=== PATIENT | male | born 1955 | race Caucasian/White ===

== ENCOUNTER 2019-12-10 06:23 | Day surgery (SDC) | payer BC, SELFPAY ==
[2019-12-04 12:23] VITALS: BMI 34.4
--- NOTE | 2019-12-07 09:28 | P.CONAN_ITS ---
Documented by User: Oriana Burger 12/07/19 09:28 HPI - Anesthesia Eval Consult details Narrative: 64yo M for colonoscopy [facility] Past Medical History Medical History (Updated 12/10/19 @ 07:37 by Enid Hernandez) Increased BMI No significant past medical history Snoring Surgical History Surgical History Hx of colonoscopy Social History Social History Are you a primary manager medicare marketing to a significant other at home: No Do you presently have visiting nurse or other home services: No Smoking Status: Never smoker Use of substances other than those prescribed or required for medical reasons: No Have you been hit, kicked, punched, or otherwise hurt by someone within the past year? If so, by whom?: No Advance Directives: No Advance Directives Information Provided: No Advance Directives on File: No Recently lost weight without trying: No Meds Allergies Allergy/AdvReac Type Severity Reaction Status Date / Time No Known Allergies Allergy Verified 12/04/19 12:18 Home Medications Medication Instructions Recorded Confirmed Type No Known Home Meds 12/04/19 12/04/19 History Exam Exam Date and Time: December 07, [id number] Height,Weight and Vital Signs: Height 5 ft 7 in Weight 99.79 kg Assessment and Plan Assessment Anesthesia Assessment: Chart Reviewed Documented by User: Enid Hernandez 12/10/19 07:38 [facility] Past Medical History Medical History (Updated 12/10/19 @ 07:37 by Enid Hernandez) Increased BMI No significant past medical history Snoring Family History Family history of problems with anesthesia: No Surgical History Surgical History Hx of colonoscopy History of Problems with Anesthesia: No Social History Social History Are you a primary manager medicare marketing to a significant other at home: No Do you presently have visiting nurse or other home services: No Smoking Status: Never smoker Use of substances other than those prescribed or required for medical reasons: No Have you been hit, kicked, punched, or otherwise hurt by someone within the past year? If so, by whom?: No Advance Directives: No Advance Directives Information Provided: No Advance Directives on File: No Recently lost weight without trying: No Meds Allergies Allergy/AdvReac Type Severity Reaction Status Date / Time No Known Allergies Allergy Verified 12/04/19 12:18 Home Medications Medication Instructions Recorded Confirmed Type No Known Home Meds 12/04/19 12/04/19 History Exam Height,Weight and Vital Signs: Vital Signs Temp Pulse Resp BP Pulse Ox 12/10/19 06:38 97.1 F 76 18 139/83 97 Airway Mallampati Class: II TM Dist: >3cm Neck ROM: Full Heart: RRR Lungs: CTAB Assessment and Plan Assessment Anesthesia Assessment: Anesthesia Plan Discussed and Chart Reviewed Final Anesthetic Review NPO: Yes ASA Class: II Final Preanesthetic Review: No Changes in Pt Med Stat, Meds/Allgs Chart Reviewed, Consent Obtained/Reviewed and Anes Risks/Benef Reviewed Patient Risk: Low Procedure Risk: Low Anesthetic Plan Anesthetic Plan: MAC: Disposition: Standard PACU
[2019-12-10 06:38] VITALS: BP 139/83; PULSE 76; RESP 18; TEMP 36.2; O2SAT 97
[2019-12-10] MEDS: Lactated Ringers 1,000 ML 100 ML IVCONT (06:54)
[2019-12-10 08:14] VITALS: BP 111/54; PULSE 79; RESP 16; TEMP 36.8; O2SAT 96
--- NOTE | 2019-12-10 08:20 | PM.OP ---
Brief Operative Note Date of procedure: 12/10/19 Pre-op diagnosis: Screening Post-op diagnosis: other (Colon polyps, Diverticulosis) Procedure: Colonoscopy to cecum and TI with biopsies and removal of polyps Surgeon: Chester Gold Anesthesia: MAC Estimated blood loss (mL): 3.0 Pathology: other (A. Cecal polyp B. Polyp at 40cm) Condition: stable Disposition: PACU
[2019-12-10 08:29] VITALS: BP 125/80; PULSE 69; RESP 18; TEMP 37.1; O2SAT 97
--- NOTE | 2019-12-10 09:22 | OP_ITS ---
SURGEON: Chester Gold MD INDICATIONS: The patient presents for evaluation of colorectal cancer screening. Full consent has been obtained from him for this, including risks of bleeding and perforation. PREOPERATIVE DIAGNOSIS: Colorectal cancer screening. POSTOPERATIVE DIAGNOSIS: PROCEDURE PERFORMED: Colonoscopy to the cecum and terminal ileum with biopsy and removal of polyps. ESTIMATED BLOOD LOSS: COMPLICATIONS: ANESTHESIA: Monitored anesthesia care. ASSISTANTS: SPECIMENS: POSTOPERATIVE DIAGNOSES: Colorectal cancer screening, colon polyps, diverticulosis. DESCRIPTION OF PROCEDURE: The patient was placed in the left lateral decubitus position. The digital rectal exam revealed no abnormalities. The Olympus video pediatric colonoscope was entered into the rectum and advanced easily to the cecum. Once in the cecum, I did identify cecal pouch with appendiceal orifice and a normal-appearing ileocecal valve. The terminal ileum was cannulated and appeared normal. The scope was withdrawn back in the colon. The entire cecum was well visualized and appeared normal other than a 3 or 4 mm flat polyp, which was biopsied and completely removed with cold biopsy forceps. The scope was slowly withdrawn assessing all mucosal surfaces carefully. Preparation was excellent. At 40 cm, right on the edge of a diverticulum, was what appeared to be a 3 or 4 mm inflammatory polyp, which was biopsied twice and at least partially removed. I did not visualize any other polyps, colitis, nor angiodysplasia. There was a mild amount of diverticulosis noted in the sigmoid colon. In the rectum, scope was retroflexed visualizing normal rectal mucosa. The distal rectum appeared normal. The scope was straightened out and withdrawn from the patient. He tolerated the procedure well and was returned to recovery area in stable condition. IMPRESSION: 1. Colon polyps, status post biopsy and removal. 2. Probable inflammatory polyp at 40 cm in the area of a diverticulum. 3. Diverticulosis. PLAN: The results of the biopsies will be checked. If the cecal polyp is a tubular adenoma, I would recommend a followup colonoscopy within 5 years. If the polyp at 40 cm is adenomatous, I would recommend a repeat colonoscopy in 3 years. However, if it is only inflammatory, then it would not need any particular followup. MD VALENTINA Khan/BLANCA / [id number] TREVOR
== END 2019-12-10 11:00 | disposition home or self-care (01) ==
PROVIDERS: PCP Internal Medicine; Visit Provider Internal Medicine
PROC: 0DJD8ZZ Inspection of Lower Intestinal Tract, Via Natural or Artificial Opening Endoscopic (ICD-10-PCS; CPT 45378; principal; 2019-12-10 07:30)
DX: Z12.11 Encounter for screening for malignant neoplasm of colon (principal); D12.0 Benign neoplasm of cecum; K51.40 Inflammatory polyps of colon without complications; K57.30 Diverticulosis of large intestine without perforation or abscess without bleeding
CPT/HCPCS: 45380; 88305

== ENCOUNTER 2019-12-12 10:08 | Outpatient (REF) | payer BC, SELFPAY ==
[2019-12-12 12:01] LABS: Prostate Specific Antigen 4.34 ng/mL (<0.05-4.0)
== END 2019-12-12 10:09 | disposition home or self-care (01) ==
LOC: HO.HMGCLDS 10:08
PROVIDERS: PCP Internal Medicine; Visit Provider Urology
DX: R97.20 Elevated prostate specific antigen [PSA] (principal)
CPT/HCPCS: 84153

== ENCOUNTER 2020-06-19 11:41 | Outpatient (REF) | payer BC, SELFPAY ==
[2020-06-19 14:49] LABS: Prostate Specific Antigen 5.06 ng/mL (<0.05-4.0)
== END 2020-06-19 11:42 | disposition home or self-care (01) ==
LOC: HO.HMGCLDS 11:41
PROVIDERS: PCP Internal Medicine; Visit Provider Urology
DX: Z12.5 Encounter for screening for malignant neoplasm of prostate (principal); R97.20 Elevated prostate specific antigen [PSA]
CPT/HCPCS: 36415; 84153

== ENCOUNTER 2020-06-26 12:36 | Outpatient (REF) | payer BC, SELFPAY ==
[2020-06-26 13:55] LABS: Hematocrit 43.1 % (42-52); Mean Corpuscular HGB Conc 34.8 g/dl (31.0-36.0); Mean Corpuscular Hemoglobin 32.1 pg (27.0-33.0); Mean Corpuscular Volume 92.3 fL (80-98); Mean Platelet Volume 10.4 fL (9.4-12.4); Platelet Count 343 X10*3/uL (160-400); Red Blood Count 4.67 X10*6/uL (4.60-5.80); Red Cell Distribution Width 12.8 % (11.0-16.0); White Blood Count 6.7 X10*3/uL (4.8-10.8)
[2020-06-26 14:25] LABS: Alanine Aminotransferase 33 U/L (0-40); Albumin Level 4.3 g/dL (3.5-5.0); Alkaline Phosphatase 103 U/L (39-117); Anion Gap 12 (12-20); Aspartate Amino Transferase 27 U/L (5-37); Bilirubin Total 0.6 mg/dL (0.0-1.0); Blood Urea Nitrogen 16 mg/dL (9-16); Calcium 9.8 mg/dL (8.4-10.2); Carbon Dioxide 25 mmol/L (22-29); Chloride 105 mmol/L (96-108); Cholesterol 197 mg/dL; Estimated Glomerular Filt Rate > 60; Glucose Fasting 108 mg/dL (60-99); HDL Cholesterol 39 mg/dL; LDL Cholesterol Calculated 96 mg/dl; Potassium 4.3 mmol/L (3.3-5.1); Sodium 138 mmol/L (135-145); Total Protein 7.3 g/dL (6.5-8.0); Triglycerides 311 mg/dL
[2020-06-26 14:46] LABS: Thyroid Stimulating Hormone 1.29 uIU/mL (0.32-4.0)
== END 2020-06-26 12:37 | disposition home or self-care (01) ==
LOC: HO.HMGCLDS 12:36
PROVIDERS: PCP Internal Medicine; Visit Provider Internal Medicine
DX: R73.01 Impaired fasting glucose (principal); E78.1 Pure hyperglyceridemia
CPT/HCPCS: 36415; 80053; 80061; 84443; 85027

== ENCOUNTER 2020-07-23 14:23 | Outpatient (REF) | payer BC, SELFPAY ==
--- NOTE | ~2020-07-23 | XR_ITS ---
EXAMINATION: XR AP PELVIS AND LEFT HIP CLINICAL INFORMATION: Pain in left hip. COMPARISON: None. TECHNIQUE: AP pelvis one view. Left hip 2 views. FINDINGS: AP Pelvis: There is mild loss of left hip joint space without bony erosive changes. The right hip joint space is normal. The SI joints are normal. No lytic or sclerotic process seen. The soft tissues are normal. Left Hip: There is mild loss of left hip joint space with periarticular spurring. No visible acute fracture, dislocation or lytic process seen. The soft tissues are normal. Incidental finding of dystrophic calcification along the left proximal medial thigh is noted. XR/XR hip LT min 2V IMPRESSION: Mild degenerative changes left hip joint. No visible acute fracture, dislocation or subluxation seen. The soft tissues are normal.
--- NOTE | ~2020-07-23 | XR_ITS ---
EXAMINATION: XR AP PELVIS AND LEFT HIP CLINICAL INFORMATION: Pain in left hip. COMPARISON: None. TECHNIQUE: AP pelvis one view. Left hip 2 views. FINDINGS: AP Pelvis: There is mild loss of left hip joint space without bony erosive changes. The right hip joint space is normal. The SI joints are normal. No lytic or sclerotic process seen. The soft tissues are normal. Left Hip: There is mild loss of left hip joint space with periarticular spurring. No visible acute fracture, dislocation or lytic process seen. The soft tissues are normal. Incidental finding of dystrophic calcification along the left proximal medial thigh is noted. XR/XR pelvis 1-2V IMPRESSION: Mild degenerative changes left hip joint. No visible acute fracture, dislocation or subluxation seen. The soft tissues are normal.
== END 2020-07-23 14:24 | disposition home or self-care (01) ==
LOC: HO.XRAY 14:23
PROVIDERS: PCP Internal Medicine; Visit Provider Physician Assistant
DX: M25.552 Pain in left hip (principal); M16.12 Unilateral primary osteoarthritis, left hip
CPT/HCPCS: 72170; 73502

== ENCOUNTER 2020-07-28 12:53 | Outpatient (REF) | payer BC, SELFPAY ==
--- NOTE | ~2020-07-28 | FL_ITS ---
EXAMINATION: XR ARTHROGRAM HIP, LEFT CLINICAL INFORMATION: Left hip primary osteoarthritis. COMPARISON: None TECHNIQUE: Following explaining fluoroscopy-guided left hip steroid injection procedure, benefits and risk, a written consent was obtained. Patient was placed supine on fluoroscopy table and area anterior left hip joint was cleaned and draped in usual sterile manner. 1% lidocaine was injected at puncture site. A 22-gauge spinal needle was then inserted from a left lateral approach femoral neck and head junction and 2 mL of nonionic contrast was injected. A single image was obtained for documentation. Subsequently 1% lidocaine, 0.25% Sensorcaine at 80 mg of Depo-Medrol as 8 mL volume was injected and needle withdrawn. Complete hemostasis was achieved at puncture site. Patient tolerated procedure extremely well. FINDINGS: On a single image obtained through the left hip there is mild reduction in the left hip joint space with minimal periarticular spurring. There is contrast opacifying the lateral femoral head and neck junction. FLUOROSCOPY TIME: 0.4 minutes DOSE AREA PRODUCT: 4.089 uGy-m2 (microgray-meter squared) FL/FL arthrogram hip LT IMPRESSION: Successful fluoroscopy-guided left hip steroid injection performed without immediate complications.
== END 2020-07-28 12:54 | disposition home or self-care (01) ==
LOC: HO.XRAY 12:53
PROVIDERS: PCP Internal Medicine; Visit Provider Physician Assistant
DX: M16.12 Unilateral primary osteoarthritis, left hip (principal)
CPT/HCPCS: 27093; 73525

== ENCOUNTER → 2020-09-04 09:25 | Outpatient (BNVA) | payer BC, SELFPAY | PROVIDERS: Visit Provider Physician Assistant ==

== ENCOUNTER 2020-10-23 10:07 | Outpatient (REF) | payer BC, SELFPAY ==
[2020-10-23 11:39] LABS: Estimated Average Glucose 114 mg/dL; Hemoglobin A1c % 5.6 %
[2020-10-23 12:24] LABS: Anion Gap 11 (12-20); Blood Urea Nitrogen 15 mg/dL (9-16); Calcium 9.4 mg/dL (8.4-10.2); Carbon Dioxide 25 mmol/L (22-29); Chloride 107 mmol/L (96-108); Estimated Glomerular Filt Rate > 60; Glucose Random 105 mg/dL (60-115); Potassium 4.6 mmol/L (3.3-5.1); Sodium 138 mmol/L (135-145)
== END 2020-10-23 10:08 | disposition home or self-care (01) ==
LOC: HO.HMGCLDS 10:07
PROVIDERS: PCP Internal Medicine; Visit Provider Internal Medicine
DX: E66.9 Obesity, unspecified (principal); R73.01 Impaired fasting glucose
CPT/HCPCS: 36415; 80048; 83036

== ENCOUNTER 2021-02-05 12:42 | Outpatient (REF) | payer BC, SELFPAY ==
[2021-02-05 15:03] LABS: Cholesterol 200 mg/dL; HDL Cholesterol 37 mg/dL; LDL Cholesterol Calculated 89 mg/dl; Triglycerides 373 mg/dL
[2021-02-05 16:21] LABS: Prostate Specific Antigen < 0.05 ng/mL (<0.05-4.0)
== END 2021-02-05 12:43 | disposition home or self-care (01) ==
LOC: HO.HMGCLDS 12:42
PROVIDERS: Absent Provider Urology; PCP Internal Medicine; Visit Provider Internal Medicine
DX: C61 Malignant neoplasm of prostate (principal); E78.5 Hyperlipidemia, unspecified; Z12.5 Encounter for screening for malignant neoplasm of prostate
CPT/HCPCS: 36415; 80061; 84153

== ENCOUNTER 2021-05-15 09:26 | Outpatient (REF) | payer BC, SELFPAY ==
[2021-05-15 12:27] LABS: Prostate Specific Antigen < 0.05 ng/mL (<0.05-4.0)
== END 2021-05-15 09:27 | disposition home or self-care (01) ==
LOC: HO.HMGCLDS 09:26
PROVIDERS: PCP Internal Medicine; Visit Provider Physician Assistant Medical
DX: Z12.5 Encounter for screening for malignant neoplasm of prostate (principal); C61 Malignant neoplasm of prostate
CPT/HCPCS: 36415; 84153

== ENCOUNTER 2021-11-13 12:36 | Outpatient (REF) | payer MEDICARE, SELFPAY ==
[2021-11-13 14:40] LABS: Prostate Specific Antigen < 0.05 ng/mL (<0.05-4.0)
== END 2021-11-13 12:37 | disposition home or self-care (01) ==
LOC: HO.HMGCLDS 12:36
PROVIDERS: PCP Internal Medicine; Visit Provider Physician Assistant
DX: Z12.5 Encounter for screening for malignant neoplasm of prostate (principal); C61 Malignant neoplasm of prostate
CPT/HCPCS: 36415; 84153

== ENCOUNTER 2022-01-07 09:58 | Outpatient (REF) | payer MEDICARE, SELFPAY ==
[2022-01-07 11:08] LABS: MANUAL DIFF FLAG NO
[2022-01-07 11:22] LABS: Basophils Absolute Auto 0.1 X10*3/uL (0.0-0.2); Basophils Percent Auto 0.9 % (0-2); Eosinophils Absolute Auto 0.1 X10*3/uL (0.0-0.4); Eosinophils Percent Auto 2.4 % (0-4); Hemoglobin 14.7 g/dl (14.0-18.0); Imm Gran Abs Auto 0.02 X10*3/uL (0.00-0.03); Imm Gran Pct Auto 0.4 % (0.0-0.4); Lymphocytes Absolute Auto 1.5 X10*3/uL (1.2-4.9); Lymphocytes Percent Auto 28.5 % (20-40); Mean Corpuscular Volume 94.2 fL (80.0-98.0); Mean Platelet Volume 10.2 fL (9.4-12.4); Monocytes Absolute Auto 0.6 X10*3/uL (0.1-1.2); Monocytes Percent Auto 10.3 % (2-11); Neutrophils Absolute Auto 3.1 x10*3/uL (2.0-8.3); Neutrophils Percent Auto 57.5 % (45-73); Platelet Count 326 X10*3/uL (160-400); Red Blood Count 4.46 X10*6/uL (4.60-5.80); Red Cell Distribution Width 12.9 % (11.0-16.0); White Blood Count 5.4 X10*3/uL (4.8-10.8)
[2022-01-07 12:09] LABS: Estimated Average Glucose 117 mg/dL; Hemoglobin A1c % 5.7 %
[2022-01-07 12:42] LABS: Alanine Aminotransferase 24 U/L (0-40); Albumin Level 4.2 g/dL (3.5-5.0); Alkaline Phosphatase 97 U/L (39-117); Anion Gap 11 (12-20); Aspartate Amino Transferase 21 U/L (5-37); Bilirubin Total 0.5 mg/dL (0.0-1.0); Blood Urea Nitrogen 14 mg/dL (9-16); Calcium 9.4 mg/dL (8.4-10.2); Carbon Dioxide 27 mmol/L (22-29); Chloride 101 mmol/L (96-108); Cholesterol 211 mg/dL; Estimated Glomerular Filt Rate > 60; Free T4 (Free Thyroxine) 0.87 ng/dL (0.71-1.85); Glucose Random 110 mg/dL (60-115); HDL Cholesterol 35 mg/dL; Potassium 4.5 mmol/L (3.3-5.1); Sodium 134 mmol/L (135-145); Thyroid Stimulating Hormone 1.67 uIU/mL (0.32-4.0); Total Protein 7.2 g/dL (6.5-8.0); Triglycerides 442 mg/dL
== END 2022-01-07 09:59 | disposition home or self-care (01) ==
LOC: HO.HMGCLDS 09:58
PROVIDERS: PCP Internal Medicine; Visit Provider Internal Medicine
DX: I10 Essential (primary) hypertension (principal); E78.1 Pure hyperglyceridemia; R73.01 Impaired fasting glucose; E66.09 Other obesity due to excess calories; Z68.37 Body mass index [BMI] 37.0-37.9, adult
CPT/HCPCS: 36415; 80053; 80061; 83036; 84439; 84443; 85025

== ENCOUNTER 2022-05-20 09:35 | Outpatient (REF) | payer MEDICARE, SELFPAY ==
[2022-05-20 12:41] LABS: Prostate Specific Antigen < 0.10 ng/mL (<0.05-4.0)
== END 2022-05-20 09:36 | disposition home or self-care (01) ==
LOC: HO.HMGCLR 09:35
PROVIDERS: PCP Internal Medicine; Visit Provider Urology
DX: C61 Malignant neoplasm of prostate (principal); Z12.5 Encounter for screening for malignant neoplasm of prostate
CPT/HCPCS: 36415; 84153

== ENCOUNTER 2022-11-17 10:23 | Outpatient (REF) | payer MEDICARE, SELFPAY ==
[2022-11-17 14:12] LABS: Prostate Specific Antigen < 0.10 ng/mL (<0.05-4.0)
== END 2022-11-17 10:24 | disposition home or self-care (01) ==
LOC: HO.HMGCLDS 10:23
PROVIDERS: PCP Internal Medicine; Visit Provider Physician Assistant
DX: Z85.46 Personal history of malignant neoplasm of prostate (principal); Z12.5 Encounter for screening for malignant neoplasm of prostate
CPT/HCPCS: 36415; 84153

== ENCOUNTER 2023-01-13 11:07 | Outpatient (REF) | payer MEDICARE, SELFPAY ==
[2023-01-13 13:42] LABS: Estimated Average Glucose 117 mg/dL; Hemoglobin A1c % 5.7 % (<6.0)
[2023-01-13 13:50] LABS: Alanine Aminotransferase 39 U/L (0-40); Albumin Level 4.3 g/dL (3.5-5.0); Alkaline Phosphatase 86 U/L (39-117); Anion Gap 10 (12-20); Aspartate Amino Transferase 34 U/L (5-37); Bilirubin Total 0.4 mg/dL (0.0-1.0); Blood Urea Nitrogen 14 mg/dL (9-16); Calcium 9.4 mg/dL (8.4-10.2); Carbon Dioxide 27 mmol/L (22-29); Chloride 106 mmol/L (96-108); Cholesterol 198 mg/dL (<200); Estimated Glomerular Filt Rate > 60; Glucose Random 111 mg/dL (60-115); HDL Cholesterol 41 mg/dL (>40); LDL Cholesterol Calculated 107 mg/dL (<100); Potassium 4.4 mmol/L (3.3-5.1); Sodium 139 mmol/L (135-145); Total Protein 7.6 g/dL (6.5-8.0); Triglycerides 251 mg/dL (<150)
[2023-01-13 14:03] LABS: TSH reflex Free T4 1.42 uIU/mL (0.32-4.0)
== END 2023-01-13 11:08 | disposition home or self-care (01) ==
LOC: HO.HMGCLDS 11:07
PROVIDERS: PCP Internal Medicine; Visit Provider Internal Medicine
DX: E78.1 Pure hyperglyceridemia (principal); R73.01 Impaired fasting glucose; I10 Essential (primary) hypertension
CPT/HCPCS: 36415; 80053; 80061; 83036; 84443

== ENCOUNTER 2023-07-15 11:32 | Outpatient (REF) | payer MEDICARE, SELFPAY ==
[2023-07-15 13:15] LABS: MANUAL DIFF FLAG NO
[2023-07-15 13:18] LABS: Appearance Urine Clear; Color Urine Yellow; Glucose Urine UA Negative (Negative); Leukocyte Esterase Urine Negative (Negative); Nitrite Urine Negative (Negative); Urine Blood Negative (Negative); Urine Ketones Negative (Negative); Urine Protein Negative (Neg-Trace)
[2023-07-15 13:27] LABS: Basophils Percent Auto 0.8 % (0-2); Eosinophils Absolute Auto 0.1 X10*3/uL (0.0-0.4); Eosinophils Percent Auto 1.9 % (0-4); Hematocrit 41.9 % (42.0-52.0); Hemoglobin 14.6 g/dl (14.0-18.0); Imm Gran Abs Auto 0.02 X10*3/uL (0.00-0.03); Imm Gran Pct Auto 0.4 % (0.0-0.4); Lymphocytes Absolute Auto 1.6 X10*3/uL (1.2-4.9); Lymphocytes Percent Auto 31.7 % (20-40); Mean Corpuscular HGB Conc 34.8 g/dl (31.0-36.0); Mean Corpuscular Hemoglobin 32.8 pg (27.0-33.0); Mean Corpuscular Volume 94.2 fL (80.0-98.0); Mean Platelet Volume 10.5 fL (9.4-12.4); Monocytes Absolute Auto 0.5 X10*3/uL (0.1-1.2); Monocytes Percent Auto 10.4 % (2-11); Neutrophils Absolute Auto 2.8 x10*3/uL (2.0-8.3); Neutrophils Percent Auto 54.8 % (45-73); Platelet Count 332 X10*3/uL (160-400); Red Blood Count 4.45 X10*6/uL (4.60-5.80); Red Cell Distribution Width 12.8 % (11.0-16.0); White Blood Count 5.2 X10*3/uL (4.8-10.8)
[2023-07-15 13:37] LABS: Estimated Average Glucose 123 mg/dL; Hemoglobin A1c % 5.9 % (<6.0)
[2023-07-15 13:52] LABS: Alanine Aminotransferase 40 U/L (0-40); Albumin Level 4.3 g/dL (3.5-5.0); Alkaline Phosphatase 75 U/L (39-117); Anion Gap 13 (12-20); Aspartate Amino Transferase 36 U/L (5-37); Bilirubin Total 0.7 mg/dL (0.0-1.0); Blood Urea Nitrogen 17 mg/dL (9-16); Calcium 9.3 mg/dL (8.4-10.2); Carbon Dioxide 23 mmol/L (22-29); Chloride 105 mmol/L (96-108); Cholesterol 205 mg/dL (<200); Estimated Glomerular Filt Rate > 60; Glucose Random 116 mg/dL (60-115); HDL Cholesterol 33 mg/dL (>40); LDL Cholesterol Calculated 115 mg/dL (<100); Potassium 4.4 mmol/L (3.3-5.1); Sodium 137 mmol/L (135-145); Total Protein 7.3 g/dL (6.5-8.0); Triglycerides 287 mg/dL (<150)
[2023-07-15 14:08] LABS: Thyroid Stimulating Hormone 1.42 uIU/mL (0.32-4.0)
== END 2023-07-15 11:33 | disposition home or self-care (01) ==
LOC: HO.HMGCLDS 11:32
PROVIDERS: PCP Internal Medicine; Visit Provider Internal Medicine
DX: I10 Essential (primary) hypertension (principal); R73.01 Impaired fasting glucose
CPT/HCPCS: 36415; 80053; 80061; 81003; 83036; 84443; 85025

== ENCOUNTER 2023-12-15 09:19 | Outpatient (REF) | payer MEDICARE, SELFPAY ==
[2023-12-15 13:55] LABS: Alanine Aminotransferase 36 U/L (0-40); Albumin Level 4.1 g/dL (3.5-5.0); Alkaline Phosphatase 82 U/L (39-117); Anion Gap 12 (12-20); Aspartate Amino Transferase 34 U/L (5-37); Bilirubin Total 0.4 mg/dL (0.0-1.0); Blood Urea Nitrogen 17 mg/dL (9-16); Calcium 9.5 mg/dL (8.4-10.2); Carbon Dioxide 23 mmol/L (22-29); Chloride 106 mmol/L (96-108); Cholesterol 183 mg/dL (<200); Estimated Glomerular Filt Rate > 60; Glucose Random 123 mg/dL (60-115); HDL Cholesterol 39 mg/dL (>40); LDL Cholesterol Calculated 97 mg/dL (<100); Potassium 4.4 mmol/L (3.3-5.1); Sodium 137 mmol/L (135-145); Total Protein 7.2 g/dL (6.5-8.0); Triglycerides 235 mg/dL (<150)
[2023-12-15 14:11] LABS: Prostate Specific Antigen < 0.10 ng/mL (<0.05-4.0)
== END 2023-12-15 09:20 | disposition home or self-care (01) ==
LOC: HO.HMGCLDS 09:19
PROVIDERS: PCP Internal Medicine; Referring Provider Physician Assistant Medical; Visit Provider Internal Medicine
DX: E78.5 Hyperlipidemia, unspecified (principal); I10 Essential (primary) hypertension; R73.01 Impaired fasting glucose; Z12.5 Encounter for screening for malignant neoplasm of prostate
CPT/HCPCS: 36415; 80053; 80061; 84153

== ENCOUNTER 2024-09-07 12:10 | Outpatient (REF) | payer MEDICARE, SELFPAY ==
--- OUTSIDE RECORDS SUMMARY | 2024-09-07 12:15 | XMS_ITS | Clinical Summary ---
Author Organization [facility] Address [address] [place] [phone] Phone Care Team Providers Care Promotions Director Name Role Phone Howie Ewing MD Primary Care Provider [phone] Chester Gold MD Unavailable [phone] Jostin Hartman MD Unavailable Howie Ewing MD Unavailable [phone] Allergies No known active allergies Medications tadalafiL (CIALIS) 5 MG tablet Take 5 mg by mouth daily as needed. 06/15/19 22 Active amoxicillin (AMOXIL) 500 MG capsule Take 4 capsules by mouth 1 hour before dental procedures. 07/08/19 22 Active tadalafiL (CIALIS, ADCIRCA) 20 MG tablet Take 25 mg by mouth. As needed prn up to 4 x a month 12/04/19 23 Active lisinopril (PRINIVIL,ZESTRIL) 10 MG tabletIndications: Benign essential hypertension take 1 tablet by mouth every day 90 tablet 3 10/20/19 24 Active atorvastatin (LIPITOR) 10 MG tabletIndications: Mixed hyperlipidemia TAKE 1 TABLET BY MOUTH EVERY DAY 90 tablet 08/28/19 25 Active atorvastatin (LIPITOR) 10 MG tabletIndications: Mixed hyperlipidemia Take 1 tablet (10 mg total) by mouth daily. 90 tablet 3 07/26/19 24 025 Discontinued Active Problems Problem Noted Date Diagnosed Date Acute postoperative anemia d ue to greater than expected blood loss 03/18/2021 Heterotopic ossification 03/18/2021 S/P hip replacement, left 03/17/2021 Hypertension 03/10/2021 Obesity, morbid 02/13/2021 Prostate cancer 11/04/2020 Overview (01/12/2021): dr hartman total prostatectomy [facility] Obesity, Class II, BMI 35-39.9 07/14/2020 Encounters Date Type Department Care Team Description 08/25/2024 Refill [facility] Internal Medicine [address] [place] [address] Howie Ewing MD Medication Refill from Last 3 Months Immunizations Immunization Administration Dates Next Due COVID-19 (Pre-11/29) Pfizer Vaccine, mRNA, PF 05/22/2020,05/01/2020 Influenza Quadrivalent Adjuv anted Preservative Free IM 12/06/2022 Influenza Quadrivalent Prese rvative Free IM 12/09/2021,11/19/2020,09/28/2019,09/04,11/19/2017 Influenza Trivalent Adjuvant ed Preservative free IM 12/09/2023 Influenza Trivalent Preserva tive Free IM 11/03/2016,11/08/2015,10/04/2014 MMR 07/12/2018 Pneumococcal conjugate PCV20 01/12/2022 Pneumococcal polysaccharide PPSV23 05/19/2016 Tdap 09/29/2023 Zoster live 05/04/2016 Zoster recombinant 01/10/2019,07/12/2018 Family History Medical History Relation Comments Heart disease Father Heart failure Father Coronary artery disease Maternal Uncle Cancer Mother Relation Status Comments Brother 1 Alive Brother 2 Alive t2 dm Father (Age 77) chf Maternal Uncle Mother (Age 89) lung cancer at 89 Sister Alive Social History Tobacco Use Types Packs/Day Years Used Date Smoking Tobacco: Never Smokeless Tobacco: Never Tobacco Cessation:Counseling Given: Not Answered Alcohol Use Standard Drinks/Week Comments Yes 20 (1 standard drink = 0.6 oz pure alcohol) drinks beer or selzter weekends Child or Family Care Answer Date Record ed Do you have problems with on e of the following making it difficult for you to work, study, or receive health care? No 07/14/2020 Education Answer Date Recorded Are you interested in more education? Not on terry e 07/17/2022 Are you concerned about learning? Not on file 07/17/2022 No 07/17/2022 No 07/17/2022 Food Answer Date Recorded Within the past 6 months we worried whether our food would run out before we got money to buy more. Never True 07/14/2020 Within the past 6 months the food we bought just didn't last and we didn't have enough money to get more. Never True Residential Stability Answer Date Recor ded What is your housing situation today? I have lisa coffey 07/14/2020 How many times have you move d in the past 12 months? Zero (I did not move) 07/14/2020 06 Are you worried that in t he next 2 months, you may not have your own housing to live in? No 07/14/2020 Paying for Meds Answer Date Recorded Do you have trouble paying for medicines? No 07/14/2020 Paying Utility Bills Answer Date Record ed Do you have trouble paying your heating or elect ricity bill? No 07/14/2020 Transportation Answer Date Recorded Has the lack of transportati on kept you from medical appointments or from getting medications? No 07/14/2020 Unemployment Answer Date Recorded Are you currently unemployed or working on a part-time or temporary basis, and looking for work? I choose not to answer 07/14/2020 Digital Access Answer Date Recorded No 07/03/2022 No 07/03/2022 Reliable internet access at home? Not on file 07/03/2022 Device with a working camera? Not on file Intimate Partner Violence Answer Date R ecorded Denied Basic Needs Not on file 01/19/2024 In the past 12 months have y ou been in a relationship with a person who hurts, threatens, or tries to control you? No 01/19/2024 Worried food would run out Not on file 01/18 In the past 12 months have y ou been in a relationship with a person who hurts, threatens, or tries to control you? No 01/19/2024 Sex and Gender Information Value Date Recorded Sex Assigned at Not on file Legal Sex Male 9:45 AM EDT Gender Identity Not on file Sexual Orientation Not on file Last Filed Vital Signs Vital Sign Reading Time Taken Comments Blood Pressure 132/78 01/24/2024 1:21 PM EST Pulse 64 01/24/2024 1:21 PM EST Temperature 36.3 C (97.4 F) 01/24/2024 1:21 PM EST Respiratory Rate 12 01/24/2024 1:21 PM EST Oxygen Saturation 97% 01/24/2024 1:21 PM EST Inhaled Oxygen Concentration - - Weight 117.6 kg (259 lb 3.2 oz) 01/24/2024 1:21 PM EST Height 171.3 cm (5' 7.44 ) 01/24/2024 1:21 PM ES T Body Mass Index 40.07 01/24/2024 1:21 PM EST Plan of Treatment Health Maintenance Due Date Last Done Comments COLOGUARD 2001 FIT TEST 2001 FOBT 2001 SIGMOIDOSCOPY 2001 VIRTUAL COLONOSCOPY 2001 RSV VACCINE (1 - Risk 60-74 years 1-dose series) 2016 COVID-19 VACCINE ( season) 2023 12/09/2021, 11/19/2020, 05/22/2020, Additional history exists BLOOD PRESSURE 07/24/2024 01/24/2024 CREATININE LEVEL 12/14/2024 12/15/2023, 08/2023, 07/15/2023, Additional history exists POTASSIUM LEVEL 12/14/2024 12/15/2023, 08/2023, 01/13/2023, Additional history exists DEPRESSION SCREENING 01/22/2025 01/23/2024 SCREENING FOR DIABETES 07/14/2026 , 01/13/2023, 08/11/2022, Additional history exists LIPID PANEL 12/14/2028 12/15/2023, 08/2023, 12/15/2023, Additional history exists COLONOSCOPY 12/09/2029 12/10/2019, 10/2008, 10/16/2008 COLORECTAL CANCER SCREENING 12/09/2029 Adult Td,Tdap Booster 09/28/2033 09/29/2023 ZOSTER VACCINES Completed 01/10/2019, 0 06/2018, 05/04/2016 HEPATITIS C SCREENING Completed 08/07/2019 , 08/07/2019, 07/10/2019 PNEUMOCOCCAL VACCINES (50+ years) Completed 01/12/2022, 05/19/2016 SMOKING STATUS SCREENING (Once After 26 Yrs) Completed 01/24/2024 HEPATITIS A VACCINES Aged Out No long er eligible based on patient's age to complete this topic HIB VACCINES Aged Out No longer eligi ble based on patient's age to complete this topic MENINGOCOCCAL VACCINES (ACWY) Aged Out No longer eligible based on patient's age to complete this topic MENINGOCOCCAL VACCINES (B) Aged Out N o longer eligible based on patient's age to complete this topic Medical Devices Implanted Type Area Battery Charger Device Identifier Shelf Expiration Date Model / Serial / Lot Hip Shell Sz F 54mm G7 Limited Osseoti 4 Hole - [id number] Implanted:Qty: 1 on 03/17/2021 by Javon Moreno MD at [facility] Left: Acetabulum JUDE / DIV OF Ambassador 01/01/2031 [id number] / / [id number] Screw Hip 6.5x20mm G7 Low Profile Dome 16a - [id number] Implanted:Qty: 1 on 03/17/2021 by Javon Moreno MD at [facility] Left: Acetabulum [employer] 08/07/2030 [id number] / / [id number] Screw Bone 6.5x40mm Hip Dome G7 Acetabular Low Profile - [id number] Implanted:Qty: 1 on 03/17/2021 by Javon Moreno MD at [facility] Left: Acetabulum [employer] 10/20/2030 [id number] / / [id number] Hip Liner 36mm F Acetabular High Wall G7 Longevity - [id number] Implanted:Qty: 1 on 03/17/2021 by Javon Moreno MD at [facility] Left: Acetabulum JUDE / DIV OF Ambassador 10/05/2025 [id number] / / [id number] Hip Stem [id number] 130deg Echo Bi Metric Titanium Alloy Porous Plasma Sprayed Full Proximalimal Profile Standard Lateralized - [id number] Implanted:Qty: 1 on 03/17/2021 by Javon Moreno MD at [facility] Left: Femur [employer] 02/26/2030 [id number] / / [id number] Femoral Head 36mm Plus 3mm Type 1 Taper Hip Biolox Delta Modular Ceramic - [id number] Implanted:Qty: 1 on 03/17/2021 by Javon Moreno MD at [facility] Left: Femur JUDE / DIV OF BRISTOL SQUIBB 12/22/2030 [id number] / / [id number] Procedures Procedure Name Priority Date/Time Associated Diagnosis Comments OUTSIDE HDL Routine 12/15/2023 OUTSIDE POTASSIUM LEVEL Routine 12/15/2023 OUTSIDE SERUM CREATININE LEVEL Routine 12/15/2023 OUTSIDE GLUCOSE FASTING Routine 07/15/2023 HM COLONOSCOPY FOR RESULT ENTRY ONLY Routine 12/10/2019 HEPATITIS C ANTIBODY, QUALITATIVE Routine 08/07/2019 10:20 AM EDT Need for hepatitis C screening test from Last 3 Months or Most Recently Relevant to Health Maintenance Results * Outside Potassium Level (12/15/2023) Potassium level - External 4.4 3.4 - 5.0 mmol/L EXTERNAL NON-INTERFACED REF LAB Historical Provider LAB BLOOD ORDERABLES Maureen l Result Performing Organization Address City/[facility]/ZIP Co de Phone Number EXTERNAL NON-INTERFACED REF LAB * Outside Serum Creatinine Level (12/15/2023) Creatinine, serum - External 0.81 0.8 - 1.3 mg/dL EXTERNAL NON-INTERFACED REF LAB Historical Provider LAB BLOOD ORDERABLES Maureen l Result EXTERNAL NON-INTERFACED REF LAB * (ABNORMAL) Outside HDL (12/15/2023) HDL - External 39(A) 40 - 80 mg/dL EXTERNAL NON-INTERFACED REF LAB Historical Provider LAB BLOOD ORDERABLES Maureen l Result EXTERNAL NON-INTERFACED REF LAB * (ABNORMAL) Outside Glucose,Fasting (07/15/2023) Glucose, fasting - External 116(A) 65 - 99 mg/dL Historical Provider LAB BLOOD ORDERABLES Maureen l Result * COLONOSCOPY FOR RESULT ENTRY ONLY (12/10/2019) Historical Provider HEALTH MAINTENANCE Final Result * Hepatitis C antibody, qualitative (08/07/2019 10:20 AM EDT) HCV NON-REACTIV E NON-REACTI VE [facility] Blood 08/07/2019 10:2 0 AM EDT 08/07/2019 10:27 AM EDT Howie Ewing MD LAB BLOOD ORDERABLES Final Re sult Performing Organization Address City/[facility]/ZIP Co de Phone Number [address] [address] from Last 3 Months or Most Recently Relevant to Health Maintenance Insurance MEDICARE PART A & B [place] [employer] SUPPLEMENT MEDICARE PART A & B [facility] MEDEX SUPPLEMENT MEDICARE PART A & B MEDICARE PART A & B MEDICARE PART A & B [employer] SUPPLEMENT MEDICARE PART A & B MEDICARE PART A & B [employer] SUPPLEMENT MEDICARE PART A & B [employer] MEDEX SUPPLEMENT MEDICARE PART A & B [employer] MEDEX SUPPLEMENT Advance Directives For more information, please contact: [phone] (9AM - 5PM [place], Tuesday-Tuesday) * Full Code (Latest Code Status on File) Date Activated Date Inactivated Comments 03/17/2021 11:10 AM Question Answer Comments Code Status Confirmed With: Patient * Full Code Date Activated Date Inactivated Comments 03/17/2021 5:59 AM 03/17/2021 11:10 AM Question Answer Comments Code Status Confirmed With: Patient Care Teams Promotions Director Relationship Specialty Start Date End Date Howie Ewing MD [address] [place] [address] [email or web address] PCP - General Internal Medicine 05/16/20 Chester Gold MD [address] [place] [address] Drive [address] [place] [id number] Gastroenterology 07/14/20 Jostin Hartman MD [address] [place] [address], [address] [place] [address] [email or web address] 03/10/21 Howie Ewing MD [address] [place] [address] [email or web address] Insurance Assigned Provider 05/14/23 Additional Source Comments The information contained in this document represents components of the legal health record. It is not the complete legal health record.[facility]
--- OUTSIDE RECORDS SUMMARY | 2024-09-07 12:15 | XMS_ITS | Clinical Summary ---
Author Organization [facility] ity Address [address] [place] [address] Care Team Providers Care Teacher Of The Hearing Impaired Name Role Phone Unavailable Primary Care Provider Unavailabl e Social History Tobacco Use Types Packs/Day Years Used Date Smoking Tobacco: Never Assessed Sex and Gender Information Value Date Recorded Sex Assigned at Not on file Legal Sex Male 9:41 PM EST Gender Identity Not on file Sexual Orientation Not on file Plan of Treatment Health Maintenance Due Date Last Done Comments COVID-19 Vaccine ( season) 2023 05/22/2020, 05/01/2020 Depression Screening 02/08/2024 Influenza Vaccine (#1) 2024 , 12/06/2022, 12/09/2021, Additional history exists RSV Immunization Adult Patients (1 - 1-dose 75+ series) 2031 DTaP,Tdap,and Td Vaccines (2 - Td or Tdap) 09/28/2033 09/29/2023 MMR Vaccines Aged Out 07/12/2018 No longer eligi ble based on patient's age to complete this topic Zoster Vaccines Completed 01/10/2019, 06/2018, 05/04/2016 Pneumococcal Vaccine: 50+ Years Completed 01/12/2022, 05/19/2016 HIB Vaccines Aged Out No longer eligi ble based on patient's age to complete this topic HPV Vaccines Aged Out No longer eligi ble based on patient's age to complete this topic Hepatitis A Vaccines Aged Out No long er eligible based on patient's age to complete this topic Hepatitis B Vaccines Aged Out No long er eligible based on patient's age to complete this topic IPV Vaccines Aged Out No longer eligi ble based on patient's age to complete this topic Meningococcal ACWY Vaccine Aged Out N o longer eligible based on patient's age to complete this topic Meningococcal B Vaccine Aged Out No l onger eligible based on patient's age to complete this topic RSV Immunization Patients Under 20 months Aged Out No longer eligible based on patient's age to complete this topic Varicella Vaccines Aged Out No longer eligible based on patient's age to complete this topic Advance Directives Documents on File Type Date Recorded Patient Golf Coach Expl anation Health Care Decision (hx) 11/07/2020 AD LESLYE DIRECTIVE
--- OUTSIDE RECORDS SUMMARY | 2024-09-07 12:15 | XMS_ITS | Patient Health Record ---
Author Organization [facility] Address [address] [place] [address] Care Team Providers Care Reading Aide Name Role Phone Howie Ewing MD Primary Care Provider Chester Aguila [phone] Reason For Referral No Information Immunizations Vaccine Route Administration Date Status Comme nts Influenza Unknown 10/08/2018 Administered Social History Tobacco Use: Social History Observation Description Date Details (start date - stop date) Never Smoker NA - NA Tobacco Use/Smoking Question Answer Notes Patient is a nonsmoker Alcohol Screen Question Answer Notes Did you have a drink contain ing alcohol in the past year? Yes How often did you have a dri nk containing alcohol in the past year? 2 to 3 times a week (3 points) How many drinks did you have on a typical day when you were drinking in the past year? 5 or 6 drinks (2 points) How often did you have 6 or more drinks on one occasion in the past year? Never (0 point) Points 5 Interpretation Positive Section Notes: Nonsmoker; occ beer Problems Problem Type SNOMED Code ICD Code Onset Dates Problem Status W/U Status Risk Notes Problem [id number] Encounter for screening for malignant neoplasm of colon (Z12.11) Active confirmed Problem [id number] Preprocedural examination (Z01.818) Active confirmed Plan Of Treatment Future Test Test Name Order Date COLONOSCOPY 09/25/2019 Insurance Providers Payer Name Payer Address Payer Phone Subscriber Number Group Number Insured Name Patient Relationship to Insured Coverage Start Date Coverage End Date [facility] CLAIMS [address] [place] [address] [phone] [id number] KACEY KUMAR Self - patient is the insured Medical (General) History Medical History History ICD Code Denies PR,DM,CVA,Lung disease,renal dise ase Neg. colonoscopy in 10/2008 except for hy perplastic polyps Surgical History Surgery Date(Month/Year)
[2024-09-07 14:26] LABS: MANUAL DIFF FLAG NO
[2024-09-07 14:34] LABS: Hematocrit 42.9 % (42.0-52.0); Hemoglobin 14.9 g/dl (14.0-18.0); Imm Gran Abs Auto 0.03 X10*3/uL (0.00-0.03); Imm Gran Pct Auto 0.5 % (0.0-0.4); Lymphocytes Absolute Auto 1.7 X10*3/uL (1.2-4.9); Mean Corpuscular HGB Conc 34.7 g/dl (31.0-36.0); Mean Corpuscular Hemoglobin 32.0 pg (27.0-33.0); Mean Corpuscular Volume 92.1 fL (80.0-98.0); NRBC Abs Auto 0.000 X10*3/uL (0.0-0.012); NRBC Pct Auto 0.0 /100WBC (0.0-0.2); Platelet Count 314 X10*3/uL (160-400); Red Blood Count 4.66 X10*6/uL (4.60-5.80); White Blood Count 6.4 X10*3/uL (4.8-10.8)
[2024-09-07 14:55] LABS: Hemoglobin A1C 178.8844 umol/L; Total Hemoglobin (HGBA1C) 3924.1810 umol/L
[2024-09-07 15:06] LABS: Alanine Aminotransferase 52 U/L (0-40); Albumin Level 4.5 g/dL (3.5-5.0); Alkaline Phosphatase 92 U/L (39-117); Anion Gap 14 (12-20); Aspartate Amino Transferase 38 U/L (5-37); Blood Urea Nitrogen 15 mg/dL (9-16); Calcium 9.3 mg/dL (8.4-10.2); Carbon Dioxide 23 mmol/L (22-29); Chloride 107 mmol/L (96-108); Cholesterol 173 mg/dL (<200); Estimated Glomerular Filt Rate > 60; HDL Cholesterol 35 mg/dL (>40); Potassium 4.6 mmol/L (3.3-5.1); Sodium 139 mmol/L (135-145); Total Protein 7.4 g/dL (6.5-8.0); Triglycerides 310 mg/dL (<150)
[2024-09-07 15:21] LABS: Thyroid Stimulating Hormone 1.25 uIU/mL (0.32-4.0)
[2024-09-07 16:48] LABS: Appearance Urine Turbid; Glucose Urine UA Negative (Negative); PH 5.0 (5.0-9.0); Specific Gravity - Urine 1.020 (1.005-1.025)
== END 2024-09-07 12:11 | disposition home or self-care (01) ==
LOC: HO.HMGCLDS 12:10
PROVIDERS: PCP Internal Medicine; Visit Provider Internal Medicine
DX: I10 Essential (primary) hypertension (principal); C61 Malignant neoplasm of prostate; E78.2 Mixed hyperlipidemia; E66.813 Obesity, class 3; Z68.41 Body mass index [BMI] 40.0-44.9, adult; R73.01 Impaired fasting glucose
CPT/HCPCS: 36415; 80053; 80061; 81003; 83036; 84443; 85025

== ENCOUNTER 2025-01-25 10:04 | Outpatient (REF) | payer MEDICARE, SELFPAY ==
--- OUTSIDE RECORDS SUMMARY | 2025-01-25 11:20 | XMS_ITS | Encounter Summary ---
Author Organization [facility] Address [address] [facility] [address] [place] [address] Phone Care Team Providers Care Manager Office Services Name Role Phone Howie Ewing MD Unavailable [phone] Howie Ewing MD Primary Care Provider [phone] Chester Gold MD Unavailable [phone] Jostin Nunez MD Unavailable Howie Ewing MD Unavailable [phone] Encounter Details Date Type Department Care Team (Late st Contact Info) Description 03/17/2021 Procedure Pass OR Admitting Dept - Virtual Department [address] [place] [address] Social History Tobacco Use Types Packs/Day Years Used Date Smoking Tobacco: Never Smokeless Tobacco: Never Alcohol Use Standard Drinks/Week Comments Yes 0 (1 standard drink = 0.6 oz pure alcohol) a couple of beers on the weekends (4-8 beers) Child or Family Care Answer Date Record ed Do you have problems with on e of the following making it difficult for you to work, study, or receive health care? No 07/14/2020 Education Answer Date Recorded Are you interested in help w ith more adult education (for example, completing high school, GED, job training, learning the Romansh language, technical skills, or developing parenting skills)? No 07/14/2020 Food Answer Date Recorded Within the past [...] work? I choose not to answer 07/14/2020 Sex and Gender Information Value Date Recorded Sex Assigned at Not on file Legal Sex Male 9:45 AM EDT Gender Identity Not on file Sexual Orientation Not on file documented as of this encounter Plan of Treatment Upcoming Encounters Date Type Department Care Team (Late st Contact Info) Description 01/30/2025 2:00 PM EST Office Visit [facility] [address] [place] [address] Howie Ewing MD [address] [place] [address] documented as of this encounter Visit Diagnoses Not on filedocumented in this encounter Additional Health Concerns Assessment Noted Time PHQ-2 Depression Total Score: 0 07/15/19 21 1:59 PM EDT documented as of this encounter Care Teams Manager Office Services Relationship Specialty Start Date End Date Howie Ewing MD [address] [place] [address] [email or web address] PCP - General Internal Medicine 05/16/20 Howie Ewing MD [address] [place] [address] [email or web address] Insurance Assigned Provider 08/13/19 12/13/21 Chester Gold MD [address] [place] [address] Drive [address] [place] [address] Gastroenterology 07/14/20 Jostin Nunez MD [address] [place] [address], [address] [place] [address] [email or web address] Urology 03/10/21 Howie Ewing MD [address] [place] [address] [email or web address] Insurance Assigned Provider 05/14/23 documented as of this encounter Additional Source Comments The information contained in this document represents components of the legal health record. It is not the complete legal health record.[facility]
--- OUTSIDE RECORDS SUMMARY | 2025-01-25 11:20 | XMS_ITS | Patient Health Record ---
Author Organization [facility] Address [address] [place] [address] Care Team Providers Care Tray Line Supervisor Name Role Phone Howie Ewing MD Primary Care Provider Chester Aguila Unavailable [phone] Reason For Referral No Information Immunizations Vaccine Route Administration Date Status Comme nts Influenza Unknown 10/08/2018 Administered Social History Tobacco Use: Social History Observation Description Date Details (start date - stop date) Never Smoker NA - NA Social History Drugs/Alcohol: Social Info Question Answer Notes Alcohol Screen Did you have a drink containing alcohol in the past year? Yes How often did you have a drink containing alcohol in the past year? 2 to 3 times a week (3 points) How many drinks did you have on a typical day when you were drinking in the past year? 5 or 6 drinks (2 points) How often did you have 6 or more drinks on one occasion in the past year? Never (0 point) Points 5 Interpretation Positive Tobacco Use: Social Info Question Answer Notes Tobacco Use/Smoking Patient is a nonsmoker Additional Details Category Social Info Options Details Miscellaneous: Marital status: Occupation: [employer] Section Notes: Nonsmoker; occ beer Problems Problem Type SNOMED Code ICD Code Onset Dates Problem Status W/U Status Risk Notes Problem Screening for malignant neoplasm of colon (762679203) Encounter for screening for malignant neoplasm of colon (Z12.11) Active confirmed Problem Preprocedural examination ([id number]) Preprocedural examination (Z01.818) Active confirmed Plan Of Treatment Future Test Test Name Order Date COLONOSCOPY 09/25/2019 Insurance Providers Payer Name Payer Address Payer Phone Subscriber Number Group Number Insured Name Patient Relationship to Insured Coverage Start Date Coverage End Date [facility] PROFESSIONAL CLAIMS [address] [place] [address] [id number] KACEY KUMAR Self - patient is the insured Medical (General) History Medical History History ICD Code Denies VA,DM,CVA,Lung disease,renal dise ase Neg. colonoscopy in 10/2008 except for hy perplastic polyps Surgical History Surgery Date(Month/Year)
--- OUTSIDE RECORDS SUMMARY | 2025-01-25 11:20 | XMS_ITS | Clinical Summary ---
Author Organization [facility] Address [address] [place] [address] Care Team Providers Care Supervisor Contact Lens Name Role Phone Unavailable Primary Care Provider Unavailabl e Social History Tobacco Use Types Packs/Day Years Used Date Smoking Tobacco: Never Assessed Sex and Gender Information Value Date Recorded Sex Assigned at Not on file Legal Sex Male 9:41 PM EST Gender Identity Not on file Sexual Orientation Not on file Plan of Treatment Health Maintenance Due Date Last Done Comments Depression Screening 02/08/2024 COVID-19 Vaccine (2024- season) 2024 05/22/2020, 05/01/2020 Influenza Vaccine (#1) 2024 , 12/06/2022, 12/09/2021, [...] Documents on File Type Date Recorded Patient Arch Support Maker Expl anation Health Care Decision (hx) 11/07/2020 AD LESLYE DIRECTIVE
--- OUTSIDE RECORDS SUMMARY | 2025-01-25 11:20 | XMS_ITS | Encounter Summary ---
Author Organization [facility] Address [address] [place] [address] Phone Care Team Providers Care Kindergarten Teacher Assistant Name Role Phone Howie Ewing MD Unavailable [phone] Howie Ewing MD Primary Care Provider [phone] Chester Gold MD Unavailable [phone] Jostin Nunez MD Unavailable Howie Ewing MD Unavailable [phone] Encounter Details Date Type Department Care Team (Latest Contact Info) Description 03/06/2021 Ancillary Orders [facility] [address] [place] [address] Javon Moreno MD [address] [place] [address] [email or web address] Platformat[facility] Primary osteoarthritis of left hip Social History Tobacco Use Types Packs/Day Years [...] high school, GED, job training, learning the Sudanese language, technical skills, or developing parenting skills)? [...] Description 01/30/2025 2:00 PM EST Office Visit [facility] [address] [place] [address] Howie Ewing MD [address] [place] [address] [email or web address] documented as of this encounter Visit Diagnoses Diagnosis Primary osteoarthritis of left hip documented in this encounter Additional Health Concerns Assessment Noted Time PHQ-2 Depression Total Score: 0 07/15/19 21 1:59 PM EDT documented as of this encounter Care Teams Kindergarten Teacher Assistant Relationship Specialty Start Date End Date Howie Ewing MD [address] [place] [address] [email or web address] PCP - General Internal Medicine 05/16/20 Howie Ewing MD [address] [place] [address] Insurance Assigned Provider 08/13/19 12/13/21 Chester Gold MD [address] [place] [address] [place] [address] Gastroenterology 07/14/20 Jostin Nunez MD [address] [place] [address], [address] [place] [address] Urology 03/10/21 Howie Ewing MD [address] [place] [address] Insurance Assigned Provider 05/14/23 documented as of this encounter Additional Source Comments The information contained in this document represents components of the legal health record. It is not the complete legal health record.[facility]
--- OUTSIDE RECORDS SUMMARY | 2025-01-25 11:20 | XMS_ITS | Clinical Summary ---
Author Organization [facility] Address [address] [facility] [address] [place] [address] Phone Care Team Providers Care Shell Coremaker Name Role Phone Howie Ewing MD Primary Care Provider [phone] Chester Gold MD Unavailable [phone] Jostin Hartman MD Unavailable Howie Ewing MD Unavailable [phone] Allergies No known active allergies Medications tadalafiL (CIALIS) 5 MG tablet Take 5 mg by mouth daily as needed. 2 Active amoxicillin (AMOXIL) 500 MG capsule Take 4 capsules by mouth 1 hour before dental procedures. 2 Active tadalafiL (CIALIS, ADCIRCA) 20 MG tablet Take 25 mg by mouth. As needed prn up to 4 x a month 3 Active lisinopril (PRINIVIL,ZESTRIL) 10 MG tabletIndications:B enign essential hypertension TAKE 1 TABLET BY MOUTH EVERY DAY 90 tablet 3 5 Active atorvastatin (LIPITOR) 10 MG tabletIndications:M ixed hyperlipidemia Take 1 tablet (10 mg total) by mouth daily. 90 tablet 3 5 Active Active Problems Problem Noted Date Diagnosed Date Primary localized osteoarthrosis of lower leg Acute pain of right knee 10/12/2024 Assessment & Plan (10/12/2024 12:11 PM EDT): Acute right knee pain while mowing the lawn yesterday, leading to knee instability. Has been using Tylenol arthritis with some improvement, although recently started this regimen. He did order a knee brace from [facility] which is on his way. Exam was ultimately benign, negative special test no tenderness to palpation. Strength 5/5 bilaterally, sensation intact bilaterally. Likely in the setting of a strain, no evidence of meniscus/injury. Discussed obtaining an x-ray, will hold off at this time but will consider if pain continues to persist. If pain worsens, will consider PT referral and orthopedics referral with the potential for an MRI. Discussed symptomatic treatment including Tylenol/ibuprofen for pain management, rest, elevation, compression. Discussed how weight loss can help alleviate pressure on the knee. Need for prophylactic vaccin ation and inoculation against influenza 10/12/2024 Assessment & Plan (10/12/2024 12:11 PM EDT): Seasonal influenza vaccine administered in the office today. Acute postoperative anemia d ue to greater than expected blood loss 03/18/2021 Heterotopic ossification 03/18/2021 S/P hip replacement, left 03/17/2021 Hypertension 03/10/2021 Obesity, morbid 02/13/2021 Prostate cancer 11/04/2020 Overview (01/12/2021): dr hartman total prostatectomy 11/04/20 [facility] Obesity, Class II, BMI 35-39.9 07/14/2020 Encounters Date Type Department Care Team Description 01/09/2025 Telephone [facility] [address] [place] [address] Howie Ewing MD Request For Order(s) 12/20/2024 1:45 PM EST Office Visit [facility] [address] [place] [address] Sandeep Barron MD Right knee pain; Primary localized osteoarthrosis of lower leg, unspecified laterality 12/20/2024 1:25 PM EST - 12/20/2024 11:59 PM EST Hospital Encounter [facility] [address] [place] [address] Sandeep Barron MD Discharge Disposition: Home or Self Care 12/10/2024 Refill [facility] [address] [facility] [place] [address] Howie Ewing MD Medication Refill 12/06/2024 Telephone [facility] [address] [place] [address] Howie Ewing MD Right knee pain 11/25/2024 Refill [facility] [address] [facility] [place] [address] Howie Ewing MD Medication Refill from Last 3 Months Immunizations Immunization Administration Dates Next Due COVID-19 (Pre-11/29) Pfizer Vaccine, mRNA, PF 05/22/2020,05/01/2020 INFLUENZA, SPLIT VIRUS, TRIVALENT PF 11/03/2016, 11/08/2015,10/04/2014 Influenza High-Dose Trivalen t Preservative Free IM 10/12/2024 Influenza Quadrivalent Adjuv anted Preservative Free IM 12/06/2022 Influenza Quadrivalent Prese rvative Free IM 12/09/2021,11/19/2020,09/28/2019,09/04,11/19/2017 Influenza Trivalent Adjuvant ed Preservative free IM 12/09/2023 MMR 07/12/2018 Pneumococcal conjugate PCV20 01/12/2022 Pneumococcal [...] ecorded Denied Basic Needs Not on file 01/23/2025 In the past 12 months have y ou been in a relationship with a person who hurts, threatens, or tries to control you? No 01/23/2025 Worried food would run out Not on file 01/23 In the past 12 months have y ou been in a relationship with a person who hurts, threatens, or tries to control you? No 01/23/2025 Sex and Gender Information Value Date Recorded Sex Assigned at Not on file Legal Sex Male 9:45 AM EDT Gender Identity Not on file Sexual Orientation Not on file Last Filed Vital Signs Vital Sign Reading Time Taken Comments Blood Pressure 150/82 10/12/2024 11:37 AM EDT Pulse 73 10/12/2024 11:37 AM EDT Temperature 36.2 C (97.1 F) 10/12/2024 11:37 AM EDT Respiratory Rate 23 10/12/2024 11:37 AM EDT Oxygen Saturation 97% 10/12/2024 11:37 AM EDT Inhaled Oxygen Concentration - - Weight 117.9 kg (260 lb) 12/20/2024 1:22 PM EST Height 170.2 cm (5' 7 ) 12/20/2024 1:22 PM EST Body Mass Index 40.72 12/20/2024 1:22 PM EST Plan of Treatment Upcoming Encounters Date Type Department Care Team (Late st Contact Info) Description 01/30/2025 2:00 PM EST Office Visit [facility] [address] [place] [address] Howie Ewing MD [address] [place] [address] [email or web address] Health Maintenance Due Date Last Done Comments COLOGUARD 2001 FIT TEST 2001 FOBT 2001 SIGMOIDOSCOPY 2001 VIRTUAL COLONOSCOPY 2001 RSV VACCINE (1 - Risk 50-74 years 1-dose series) 2006 COVID-19 VACCINE ( season) 2024 12/09/2021, 11/19/2020, 05/22/2020, Additional history exists DEPRESSION SCREENING 01/22/2025 01/23/2024 BLOOD PRESSURE 04/11/2025 10/12/2024 CREATININE LEVEL 09/07/2025 09/07/2024, 08/2023, 07/15/2023, Additional history exists POTASSIUM LEVEL 09/07/2025 09/07/2024, 1108/2023, 07/15/2023, Additional history exists SCREENING FOR DIABETES 09/08/2027 , 09/07/2024, 07/15/2023, Additional history exists LIPID PANEL 09/07/2029 09/07/2024, 08/2023, 12/15/2023, Additional history exists COLONOSCOPY 12/09/2029 12/10/2019, 10/2008, 10/16/2008 COLORECTAL CANCER SCREENING 12/09/2029 Adult Td,Tdap Booster 09/28/2033 09/29/2023 ZOSTER VACCINES Completed 01/10/2019, 06/2018, 05/04/2016 HEPATITIS C SCREENING Completed 08/07/2019 , 08/07/2019, 07/10/2019 PNEUMOCOCCAL VACCINES (50+ years) Completed 01/12/2022, 05/19/2016 INFLUENZA VACCINE Completed 10/12/2024, , 12/06/2022, Additional history exists SMOKING STATUS SCREENING (Once After 26 Yrs) Completed 12/20/2024 HEPATITIS A VACCINES Aged Out No long [...] this topic Medical Devices Implanted Type Area Surgery Nurse Device Identifier Shelf Expiration Date Model / Serial / Lot Hip Shell Sz F 54mm G7 Limited Osseoti 4 Hole - [id number] Implanted:Qty: 1 on 03/17/2021 by Javon Moreno MD at [facility] Left: Acetab[employer] JUDE / DIV OF [employer] 01/01/2031 [id number] / / [id number] Screw Hip 6.5x20mm G7 Low Profile Dome 16a - [id number] Implanted:Qty: 1 on 03/17/2021 by Javon Moreno MD at [facility] Left: Acetabulum [employer] 08/07/2030 [id number] / / [id number] Screw Bone 6.5x40mm Hip Dome G7 Acetabular Low Profile - [id number] Implanted:Qty: 1 on 03/17/2021 by Javon Moreno MD at [facility] Left: Acetabulum [employer] 10/20/2030 [id number] / / [id number] Hip Liner 36mm F Acetabular High Wall G7 Longevity - [id number] Implanted:Qty: 1 on 03/17/2021 by Javon Moreno MD at [facility] Left: Acetabulum JUDE / DIV OF [employer] 10/05/2025 [id number] / / [id number] Hip Stem [id number] 130deg Echo Bi Metric Titanium Alloy Porous Plasma Sprayed Full Proximalimal Profile Standard Lateralized - [id number] Implanted:Qty: 1 on 03/17/2021 by Javon Moreno MD at [facility] Left: Femur [employer] 02/26/2030 [id number] / / [id number] Femoral Head 36mm Plus 3mm Type 1 Taper Hip Biolox Delta Modular Ceramic - [id number] Implanted:Qty: 1 on 03/17/2021 by Javon Moreno MD at [facility] Left: Femur JUDE / DIV OF [employer] 12/22/2030 [id number] / / [id number] Procedures Procedure Name Priority Date/Time Associated Diagnosis Comments XR KNEE 4 OR MORE VIEWS (RIGHT) Routine 12/20/2024 1:34 PM EST Right knee pain LIPID PANEL Routine 09/07/2024 1:31 PM EDT COMPREHENSIVE METABOLIC PANEL (CMP) Routine 09/07/2024 1:31 PM EDT OUTSIDE GLUCOSE FASTING Routine 07/15/2023 HM COLONOSCOPY FOR RESULT ENTRY ONLY Routine 12/10/2019 HEPATITIS C ANTIBODY, QUALITATIVE Routine 08/07/2019 10:20 AM EDT Need for hepatitis C screening test from Last 3 Months or Most Recently Relevant to Health Maintenance Results * XR KNEE 4 OR MORE VIEWS (RIGHT) (12/20/2024 1:34 PM EST) Narrative SYSTEMGENERATED, DOCUMENTATION - 12/20/2024 1:34 PM EST This image report has been auto-finalized and has not been read by a Radiologist. Interpretation has been included in the provider encounter note for this date of service. Result [facility] Sandeep Barron MD IMG XR LOWER EXTREMITY Final Result * Comprehensive metabolic panel (09/07/2024 1:31 PM EDT) Sodium - External Potassium - External 4.6 Chloride - External CO2 - External BUN - External Creatinine - External 0.93 Glucose - External 101 Albumin - External Protein - External Calcium - External Alkaline Phosphatase - External Bilirubin, total - External AST - External ALT - External 52 Globulin - External eGFR - External Anion Gap - External Result [facility] Provider LAB BLOOD BKR ORDERABLES Edited Result - Final * Lipid panel (09/07/2024 1:31 PM EDT) Pathologist [facility] HDL - External 35 Cholesterol, Total - External 76 Triglycerides - External 173 LDL, calculated - External 310 Cardiac Risk Ratio - External Non-HDL Cholesterol - External Result [facility] Provider LAB BLOOD BKR ORDERABLES Edited Result - Final * (ABNORMAL) Outside Glucose,Fasting (07/15/2023) Pathologist [facility] Glucose, fasting - External 116(A) 65 - 99 mg/dL Result [facility] Provider LAB BLOOD ORDERABLES Maureen l Result * HM COLONOSCOPY FOR RESULT ENTRY ONLY (12/10/2019) Result [facility] Provider HEALTH MAINTENANCE Final Result * Hepatitis C antibody, qualitative (08/07/2019 10:20 AM EDT) Pathologist [facility] HCV NON-REACTIV E NON-REACTI VE [facility] Blood 08/07/2019 10:2 0 AM EDT 08/07/2019 10:27 AM EDT Result [facility] Howie Ewing MD LAB BLOOD BKR ORDERABLES Maureen l Result [facility] [address] [address] from Last 3 Months or Most Recently Relevant to Health Maintenance Insurance MEDICARE PART A & B [email or web address] MEDEX SUPPLEMENT MEDICARE PART A & B [email or web address] MEDEX SUPPLEMENT MEDICARE PART A & B MEDICARE PART A & B MEDICARE PART A & B MEDEX SUPPLEMENT MEDICARE PART A & B MEDICARE PART A & B [facility] MEDEX SUPPLEMENT MEDICARE PART A & B [email or web address] MEDEX SUPPLEMENT MEDICARE PART A & B [email or web address] MEDEX SUPPLEMENT Advance Directives For more information, please contact: [phone] (9AM - 5PM [facility], Tuesday-Tuesday) * Full Code (Latest Code Status on File) Date Activated Date Inactivated Comments 03/17/2021 11:10 AM Question Answer Comments Code Status Confirmed With: Patient * Full Code Date Activated Date Inactivated Comments 03/17/2021 5:59 AM 03/17/2021 11:10 AM Question Answer Comments Code Status Confirmed With: Patient Care Teams Shell Coremaker Relationship Specialty Start Date End Date Howie Ewing MD [address] [place] [address] [email or web address] PCP - General Internal Medicine 05/16/20 Chester Gold MD [address] [place] [address] Drive [address] [place] [address] Gastroenterology 07/14/20 Jostin Hartman MD [address] [place] [address], [address] [place] [address] [email or web address] 03/10/21 Howie Ewing MD [address] [place] [address] [email or web address] Insurance Assigned Provider 05/14/23 Additional Source Comments The information contained in this document represents components of the legal health record. It is not the complete legal health record.[facility]
[2025-01-25 15:12] LABS: Appearance Urine Cloudy; Glucose Urine UA Negative (Negative); PH 6.0 (5.0-9.0); Specific Gravity - Urine >= 1.030 (1.005-1.025)
[2025-01-25 15:16] LABS: MANUAL DIFF FLAG NO
[2025-01-25 15:27] LABS: Hematocrit 42.0 % (42.0-52.0); Hemoglobin 14.7 g/dl (14.0-18.0); Imm Gran Abs Auto 0.02 X10*3/uL (0.00-0.03); Imm Gran Pct Auto 0.4 % (0.0-0.4); Lymphocytes Absolute Auto 1.6 X10*3/uL (1.2-4.9); Mean Corpuscular HGB Conc 35.0 g/dl (31.0-36.0); Mean Corpuscular Hemoglobin 32.6 pg (27.0-33.0); Mean Corpuscular Volume 93.1 fL (80.0-98.0); NRBC Abs Auto 0.000 X10*3/uL (0.0-0.012); NRBC Pct Auto 0.0 /100WBC (0.0-0.2); Platelet Count 348 X10*3/uL (160-400); Red Blood Count 4.51 X10*6/uL (4.60-5.80); White Blood Count 5.0 X10*3/uL (4.8-10.8)
[2025-01-25 16:20] LABS: Alanine Aminotransferase 38 U/L (0-40); Albumin Level 4.3 g/dL (3.5-5.0); Alkaline Phosphatase 88 U/L (39-117); Anion Gap 12 (12-20); Aspartate Amino Transferase 33 U/L (5-37); Blood Urea Nitrogen 14 mg/dL (9-16); Calcium 9.4 mg/dL (8.4-10.2); Carbon Dioxide 25 mmol/L (22-29); Chloride 106 mmol/L (96-108); Cholesterol 168 mg/dL (<200); Estimated Glomerular Filt Rate > 60; HDL Cholesterol 32 mg/dL (>40); Potassium 4.2 mmol/L (3.3-5.1); Sodium 139 mmol/L (135-145); Thyroid Stimulating Hormone 1.21 uIU/mL (0.32-4.0); Total Protein 6.9 g/dL (6.5-8.0); Triglycerides 300 mg/dL (<150)
[2025-01-25 16:55] LABS: Prostate Specific Antigen < 0.10 ng/mL (<0.05-4.0)
== END 2025-01-25 10:05 | disposition home or self-care (01) ==
LOC: HO.HMGCLDS 10:04
PROVIDERS: PCP Internal Medicine; Visit Provider Internal Medicine
DX: I10 Essential (primary) hypertension (principal); C61 Malignant neoplasm of prostate; R73.01 Impaired fasting glucose; R78.2 Finding of cocaine in blood; Z12.5 Encounter for screening for malignant neoplasm of prostate
CPT/HCPCS: 36415; 80053; 80061; 81003; 83036; 84153; 84443; 85025